=== PATIENT | female | born 1965 ===

== ENCOUNTER 2018-04-03 21:10 | Emergency (ER) | payer OTHER ==
[2018-04-03 21:29] VITALS: BP 161/81; PULSE 92; TEMP 98.3; O2SAT 100
--- NOTE | 2018-04-03 22:03 | C.PDOC ---
History Of Present Illness 52 yo female come in for evaluation of pruritic rash gradually developed for past 2 days. Pt denies previous hx of allergy to food, denies exposure to known allergen. Pt denies recent illness, fever, chills, headache, dizziness, drooling, throat swelling or tightness, CP, SOB, dyspnea, wheezing, cough, abd. pain, N/V, denies any other active complaints. Ambulate to Ed for evaluation, not in any apparent distress. Time Seen by Provider: 04/03/18 21:37 Chief Complaint (Nursing): Allergic Reaction History Per: Patient Past Medical History Reviewed: Historical Data, Nursing Documentation, Vital Signs Vital Signs: Last Vital Signs Temp 98.3 F 04/03/18 21: Pulse 92 H 04/03/18 21: Resp 16 04/03/18 21: BP 161/81 H 04/03/18 21: Pulse Ox 100 04/03/18 21:26 - Medical History PMH: HTN Family History: States: No Known Family Hx - Social History Hx Tobacco Use: No Hx Alcohol Use: No Hx Substance Use: No Review Of Systems Except As Marked, All Systems Reviewed And Found Negative. Constitutional: Negative for: Fever, Chills Eyes: Negative for: Vision Change ENT: Negative for: Mouth Swelling, Throat Pain, Throat Swelling Cardiovascular: Negative for: Chest Pain, Palpitations, Orthopnea, Edema, Light Headedness Respiratory: Negative for: Cough, Shortness of Breath, Wheezing Gastrointestinal: Negative for: Nausea, Vomiting Skin: Positive for: Rash Neurological: Negative for: Weakness, Numbness, Headache, Dizziness Physical Exam - Physical Exam Appears: Well, Non-toxic, No Acute Distress Skin: Normal Color, Warm, Dry, Rash (scattered urticaria rash to upper back, lwoer abd. wall. B/L LEs. No edema, no cellulitis.) Head: Normacephalic Eye(s): bilateral: PERRL Nose: No Flaring Oral Mucosa: Moist, No Drooling Tongue: No Swelling Lips: No Swelling Throat: No Erythema, No Drooling, Other (Uvula midline, no edema.) Neck: Supple Cardiovascular: Rhythm Regular, No Murmur, No JVD Respiratory: No Decreased Breath Sounds, No Accessory Muscle Use, No Stridor, No Wheezing Gastrointestinal/Abdominal: Soft, No Tenderness Back: No CVA Tenderness Extremity: Normal ROM, No Deformity, No Swelling Neurological/Psych: Oriented x3, Normal Speech ED Course And Treatment O2 Sat by Pulse Oximetry: 100 Pulse Ox Interpretation: Normal Progress Note: On re-eval, pt is afebrile, hemodynamicaly stable. NOn-toxic, not in resp. distress. PulseOx 100% RA. ENT: no acute findings. Uvula midline, no edema. neck: SUpple, (-) JVD, (-) carotid bruits B/L. Lungs: CTA B/L, BS equal B/L. Abd: benign. Skin: scattered urticaria rash. pt advised. ref. to f/u with PMD, aperture mask etcher in1 -2 days for re-eavl,. Return to Ed if any worsening or new changes. Disposition Counseled Patient/Family Regarding: Diagnosis, Need For Followup, Rx Given - Disposition Referrals: [facility] [Outside] Disposition: HOME/ ROUTINE Disposition Time: 22:00 Condition: STABLE Additional Instructions: Avoid food that may cause allergy take medication as prescribed Follow up with PMD, Benefits Specialist in2 -3 days for re-evaluation. return to Ed if any worsening or new changes. Prescriptions: DiphenhydrAMINE [Benadryl] 25 mg PO BID #10 cap Famotidine [Pepcid] 20 mg PO BID #10 tab Prednisone [Deltasone] 40 mg PO DAILY #6 tablet Instructions: Mariel Print Language: SAMI - Clinical Impression Clinical Impression: Allergic urticaria
[2018-04-03 22:21] VITALS: RESP 20
== END 2018-04-03 22:20 | disposition home or self-care (01) ==
LOC: C.ER 21:10
DX: L50.0 Allergic urticaria (principal); I10 Essential (primary) hypertension